=== PATIENT | male | born 1975 | race Hispanic/Latino ===

== ENCOUNTER → 2022-05-14 | Outpatient (CLI) | payer OTHER | END | disposition home or self-care (01) | LOC: RAH 12:47 | PROVIDERS: ATTEND Urology Pediatric Urology | DX: M17.12 Unilateral primary osteoarthritis, left knee (principal); M85.88 Other specified disorders of bone density and structure, other site | CPT/HCPCS: 73700 ==

== ENCOUNTER 2022-07-24 06:35 | Observation (INO) | payer OTHER ==
[2022-07-20 15:43] LABS: BASOPHILS % (AUTO) 0.7 % (0.0-5.0); EOSINOPHILS % (AUTO) 4.7 % (0.0-8.0); HEMATOCRIT 46.7 % (42-54); MEAN CORPUSCULAR HEMOGLOBIN 30.2 pg (27.0-33.0); MEAN CORPUSCULAR HGB CONC 33.6 g/dL (32.0-36.0); MEAN CORPUSCULAR VOLUME 89.8 fL (79-99); MONOCYTES % (AUTO) 7.4 % (3.0-13.0); NEUTROPHILS % (AUTO) 59.7 % (40.0-77.0); PLATELET COUNT (AUTO) 220 K/uL (130-400); RED CELL DISTRIBUTION WIDTH 13.3 % (11.0-15.5); WHITE BLOOD COUNT (AUTO) 9.1 K/uL (4.8-10.8)
[2022-07-20 15:53] VITALS: BP 141/89
[2022-07-20 15:53] LABS: INR 0.94 (0.85-1.15); PROTHROMBIN TIME 10.3 SEC (9.6-11.6)
[2022-07-20 15:55] LABS: PARTIAL THROMBOPLASTIN TIME 29.9 SEC (26.3-35.5)
[2022-07-20 16:10] LABS: CREATININE 0.7 mg/dL (0.5-1.5); POTASSIUM 4.2 mmol/L (3.5-5.1)
[~2022-07-24] VITALS: Ht 177.8 cm; Wt 135.4 kg
[2022-07-24] VITALS (26 sets, daily range): BP systolic 114–175; BP diastolic 65–100
[~2022-07-24 06:35] MED LIST: ERGO500093 PO; LISI20TA24 PO
[2022-07-24] MEDS ORDERED: CEFAZOLIN SODIUM 2 GM VIAL ONE (07:39)
[2022-07-24] MEDS ORDERED: LACTATED RINGERS 1000ML 1,000 ML IV ONE (07:39)
[2022-07-24] MEDS ORDERED: FAMOTIDINE 20MG VIAL IV ONE (09:14)
[2022-07-24] MEDS ORDERED: PHENYLEPHRINE HCL 10 MG/ML 1ML VIAL IV ONE (09:21)
[2022-07-24] MEDS ORDERED: FENTANYL CITRATE PF 50 MCG/1 ML 5ML AMP IV ONE ×2 (09:25→13:14)
[2022-07-24] MEDS ORDERED: PROPOFOL 10 MG/ML 20ML VIAL IV ONE (09:26)
[2022-07-24] MEDS ORDERED: LIDOCAINE PF 100MG/5ML (2%) SYRINGE 5ML ONE (09:26)
[2022-07-24] MEDS ORDERED: ROPIVACAINE 0.5% 5MG/ML 30ML IJ ONE (09:30)
[2022-07-24] MEDS ORDERED: TRANEXAMIC ACID 1000MG/10ML ONE ×2 (09:44→12:19)
[2022-07-24] MEDS ORDERED: HYDROMORPHONE 1 MG INJ ONE ×2 (10:07→14:22)
[2022-07-24] MEDS ORDERED: ROCURONIUM 10MG/1ML SYR 10 MG/ML ML ONE ×2 (11:42→13:01)
[2022-07-24] MEDS ORDERED: SUCCINYLCHOLINE CHLORIDE 20 MG/ML 10 ML VIAL ONE (11:42)
[2022-07-24] MEDS ORDERED: MIDAZOLAM HCL 1 MG/ML 2ML VIAL ONE (11:52)
[2022-07-24] MEDS ORDERED: CEFAZOLIN SODIUM 2 GM VIAL IVPB ONE (12:15)
[2022-07-24] MEDS ORDERED: TRANEXAMIC ACID 1000MG/10ML IV ONE (12:15)
[2022-07-24] MEDS ORDERED: KCL 20 MEQ ERTAB PO PRN (12:30)
[2022-07-24] MEDS ORDERED: ONDANSETRON 4MG INJ IVP PRN (12:30)
[2022-07-24] MEDS ORDERED: POTASSIUM CHLORIDE 20MEQ/100ML 100 ML IV PRN (12:30)
[2022-07-24] MEDS: 0.9%NACL 1000ML 1,000 ML IV SCH ×2 (12:30→20:55)
[2022-07-24] MEDS ORDERED: POTASSIUM CHLORIDE 10% ELIXIR 20 MEQ/15 ML UDCUP PO PRN (12:30)
[2022-07-24] MEDS ORDERED: ONDANSETRON 4MG INJ ONE ×2 (12:43→14:46)
[2022-07-24] MEDS ORDERED: GLYCOPYRROLATE 1 MG/5 ML SYRINGE ONE (12:46)
[2022-07-24] MEDS ORDERED: NEOSTIGMINE 5MG/5ML SYR IV ONE (14:06)
[2022-07-24] MEDS ORDERED: MEPERIDINE-PF 25 MG/ML SYG ONE ×2 (14:14→14:39)
[2022-07-24] MEDS: ACETAMINOPHEN 1,000 MG/100 ML VIAL IV SCH ×3 (15:19→20:52)
[2022-07-24] MEDS: FENTANYL CITRATE PF 50 MCG/1 ML 2ML VIAL ONE ×2 (15:56→16:24)
[2022-07-24] MEDS: IBUPROFEN 800MG + NS 250ML IV SCH (16:08)
[2022-07-24] MEDS: MORPHINE 4 MG SYG IVP PRN (16:09)
[2022-07-24] MEDS: HYDROCODONE/ACETAMINOPHEN 10/325 MG TAB PO PRN (16:09)
[2022-07-24] MEDS: TRAMADOL HCL 50 MG TABLET PO SCH (17:45)
[2022-07-24] MEDS: CEFAZOLIN SODIUM 2 GM VIAL IVPB SCH (17:45)
[2022-07-24] MEDS ORDERED: PHARMACY COMMUNICATION MISC SCH (18:00)
[2022-07-24] MEDS: FAMOTIDINE 20MG TAB PO SCH (20:52)
[2022-07-25] VITALS: BP 148/76
[2022-07-25] MEDS: TRAMADOL HCL 50 MG TABLET PO SCH ×5 (00:02→23:43)
[2022-07-25] MEDS: IBUPROFEN 800MG + NS 250ML IV SCH ×2 (00:02→07:00)
[2022-07-25] MEDS: CEFAZOLIN SODIUM 2 GM VIAL IVPB SCH (00:36)
[2022-07-25] MEDS: MORPHINE 4 MG SYG IVP PRN ×2 (00:37→14:46)
[2022-07-25] MEDS: ACETAMINOPHEN 1,000 MG/100 ML VIAL IV SCH (02:46)
[2022-07-25 04:00] VITALS: BP 128/74
[2022-07-25 05:00] LABS: HEMATOCRIT 39.6 % (42-54); MEAN CORPUSCULAR HGB CONC 33.3 g/dL (32.0-36.0); RED BLOOD CELL COUNT(AUTO) 4.4 MIL/uL (4.50-6.20); RED CELL DISTRIBUTION WIDTH 13.2 % (11.0-15.5); WHITE BLOOD COUNT (AUTO) 10.9 K/uL (4.8-10.8)
[2022-07-25 05:01] LABS: CREATININE 0.9 mg/dL (0.5-1.5); POTASSIUM 3.8 mmol/L (3.5-5.1)
[2022-07-25] MEDS: HYDROCODONE/ACETAMINOPHEN 5/325 MG TAB PO PRN (06:30)
[2022-07-25 08:01] VITALS: BP 147/82
[2022-07-25] MEDS: 0.9%NACL 1000ML 1,000 ML IV SCH (08:30)
[2022-07-25] MEDS: ASPIRIN 81 MG EC TAB PO SCH ×2 (08:53→20:23)
[2022-07-25] MEDS: FAMOTIDINE 20MG TAB PO SCH ×2 (08:54→20:23)
[2022-07-25] MEDS: LISINOPRIL 20 MG TABLET PO SCH (08:54)
[2022-07-25] MEDS: HYDROCODONE/ACETAMINOPHEN 10/325 MG TAB PO PRN (08:55)
[2022-07-25 11:49] VITALS: BP 131/81
[2022-07-25 16:27] VITALS: BP 138/71
[2022-07-25] MEDS: POLYETHYLENE GLYCOL 3350 17 GM POWD.PACK PO SCH (16:31)
[2022-07-25 19:52] VITALS: BP 132/78
[2022-07-26] VITALS: BP 129/73
[2022-07-26] MEDS: HYDROCODONE/ACETAMINOPHEN 5/325 MG TAB PO PRN (03:20)
[2022-07-26 04:00] VITALS: BP 167/93
[2022-07-26] MEDS: TRAMADOL HCL 50 MG TABLET PO SCH (05:58)
[2022-07-26 07:28] VITALS: BP 144/81
[2022-07-26] MEDS: POLYETHYLENE GLYCOL 3350 17 GM POWD.PACK PO SCH (08:30)
[2022-07-26] MEDS: FAMOTIDINE 20MG TAB PO SCH (08:30)
[2022-07-26] MEDS: LISINOPRIL 20 MG TABLET PO SCH (08:31)
[2022-07-26] MEDS: ASPIRIN 81 MG EC TAB PO SCH (08:31)
[2022-07-27] MEDS ORDERED: BISACODYL 10 MG SUPP.RECT RC PRN (12:30)
== END 2022-07-26 11:00 | disposition home or self-care (01) ==
LOC: DAH 06:35 → DAHIP 06:36 → DAH 06:36 → 4AH 15:45
PROVIDERS: ADMIT Orthopaedic Surgery; ATTEND Orthopaedic Surgery
DX: M17.12 Unilateral primary osteoarthritis, left knee (principal); Z20.822 Contact with and (suspected) exposure to COVID-19; I10 Essential (primary) hypertension; E66.9 Obesity, unspecified; M19.92 Post-traumatic osteoarthritis, unspecified site; Z68.41 Body mass index [BMI] 40.0-44.9, adult; Z90.49 Acquired absence of other specified parts of digestive tract; Z79.899 Other long term (current) drug therapy; Z98.890 Other specified postprocedural states
CPT/HCPCS: 27447; S2900; 36415; 64447; 80048; 85025; 85027; 85610; 85730; 87426; 87641; 93005; 96365; 96366; 96367; 96368; 96375; 96376; 97039; G0378; J0330; J1170; J1741; J2001; J2175; J2250; J2270; J2370; J2405; J2704; J2710; J2795; J3010; J3490; J7030; J7120